=== PATIENT | female | born 1975 | race Caucasian/White ===

== ENCOUNTER 2018-10-14 14:36 | Emergency (ER) | payer OTHER ==
[2018-10-14 14:53] VITALS: BP 133/86
--- NOTE | 2018-10-14 15:12 | UC ---
Complaint Female HPI - HPI Summary HPI Summary: Started w/ 2 days of lower pelvic pressure and discomfort. Denies vaginal discharge or fever or hematuria. - History Of Current Complaint Chief Complaint: UCGU Stated Complaint: URINARY COMPLAINT Time Seen by Provider: 10/14/18 15:10 Hx Obtained From: Patient Hx Last Menstrual Period: [id number] ?: No Pain Intensity: 6 Pain Scale Used: 0-10 Numeric - Allergies/Home Medications Allergies/Adverse Reactions: Allergies Allergy/AdvReac Type Severity Reaction Status Date / Time MS NSAIDs [NSAIDs] Allergy Intermediate See Comment Verified 02/10/16 20:25 ampicillin Allergy Unknown Verified 10/14/18 14:59 Reaction Details codeine Allergy GI Upset Verified 10/14/18 14:59 morphine Allergy Rash Verified 10/14/18 14:59 PMH/Surg Hx/FS Hx/Imm Hx Previously Healthy: Yes - Surgical History Surgical History: Yes Surgery Procedure, Year, and Place: APPENDECTOMY A [id number]. LAPAROSCOPIC [id number]. 2000- RIGHT ANKLE RECONSTRUCTION- [place]. 09/25 ABLATION AND TUBAL LIGATION - Family History Known Family History: Positive: Unknown - Social History Alcohol Use: Weekly Substance Use Type: None Smoking Status (MU): Never Smoked Tobacco Review of Systems All Other Systems Reviewed And Are Negative: Yes Constitutional: Positive: Negative Skin: Positive: Negative Gastrointestinal: Positive: Other - +pelvic pressure. Negative: Abdominal Pain , Vomiting, Diarrhea, Nausea Genitourinary: Positive: Frequency, Urgency. Negative: Dysuria, Hematuria, Vaginal/Penile Burning, Vaginal/Penile Itching, Vaginal/Penile Discharge Physical Exam Triage Information Reviewed: Yes Appearance: Well-Appearing Vital Signs: Initial Vital Signs Temp 97.1 F 10/14/18 14:47 Pulse 78 10/14/18 14:47 Resp 16 10/14/18 14:47 BP 133/86 10/14/18 14:47 Pulse Ox 100 10/14/18 14:47 Vital Signs Reviewed: Yes Respiratory Exam: Normal Cardiovascular Exam: Normal Abdomen Description: Positive: Nontender, Soft. Negative: CVA Tenderness (R), CVA Tenderness (L), Distended, Guarding Complaint Female Dx - Course Course Of Treatment: Acute lower pelvic pressure w/ +leuks on UA. Afebrile. Sending for cx. Will tx w/ Bactrim. declined urine hcg and sti testing. - Differential Dx/Diagnosis Differential Diagnosis/HQI/PQRI: , Sexually Transmitted Disease, Urinary Tract Infection Provider Diagnosis: UTI (urinary tract infection) Discharge - Sign-Out/Discharge Documenting (check all that apply): Patient Departure All imaging exams completed and their final reports reviewed: No Studies - Discharge Plan Condition: Good Disposition: HOME Prescriptions: Phenazopyridine 200 mg (NF) [Pyridium 200 MG tab *] 200 mg PO TID 3 Days #9 tab Sulfamethox/Trimethoprim DS* [Bactrim DS 800/160 TAB*] 1 tab PO BID 3 Days #6 tab Patient Education Materials: Urinary Tract Infection in Women (ED) Referrals: Negar Simeon MD [Primary Care Provider] - Additional Instructions: I have sent an antibiotic for you to the pharmacy. Follow up with your pcp if not improving. - Billing Disposition and Condition Condition: GOOD Disposition: Home
--- NOTE | 2018-10-16 17:23 | UC ---
- Progress Note Progress Note: Urine culture from October 14, 2018 comes back today with greater than 100,000 strep group B. Strep group B is usually resistant to Bactrim. The patient was started on Bactrim on October 14, 2018. I called the patient and she has mild improvement she does not feel worse. I let her know that we are going to change the antibiotic to Keflex 500 mg by mouth 3 times a day for 7 days. I have sent a prescription to her pharmacy which is now [facility]. Course/Dx - Diagnoses Provider Diagnoses: UTI (urinary tract infection) Discharge - Sign-Out/Discharge Documenting (check all that apply): Patient Departure All imaging exams completed and their final reports reviewed: No Studies - Discharge Plan Condition: Good Disposition: HOME Prescriptions: Cephalexin CAP* [Keflex CAP*] 500 mg PO TID #21 cap Phenazopyridine 200 mg (NF) [Pyridium 200 MG tab *] 200 mg PO TID PRN #6 tab PRN Reason: Pain Phenazopyridine 200 mg (NF) [Pyridium 200 MG tab *] 200 mg PO TID 3 Days #9 tab Sulfamethox/Trimethoprim DS* [Bactrim DS 800/160 TAB*] 1 tab PO BID 3 Days #6 tab Patient Education Materials: Urinary Tract Infection in Women (ED) Referrals: Negar Simeon MD [Primary Care Provider] - Additional Instructions: I have sent an antibiotic for you to the pharmacy. Follow up with your pcp if not improving. - Billing Disposition and Condition Condition: GOOD Disposition: Home
== END 2018-10-14 15:42 | disposition home or self-care (01) ==
LOC: UCEAST 14:36
DX: N39.0 Urinary tract infection, site not specified (principal); Z88.6 Allergy status to analgesic agent; Z88.0 Allergy status to penicillin; Z88.5 Allergy status to narcotic agent
CPT/HCPCS: 81003; 87077; 87086; 99212; G0463